=== PATIENT | female | born 1995 | race Caucasian/White ===

== ENCOUNTER 2016-07-19 13:30 | Emergency (ER) | payer BC ==
[2016-07-19 14:21] VITALS: BP 115/73
--- NOTE | 2016-07-19 15:14 | UC ---
Back Pain HPI - HPI Summary HPI Summary: 21 yo female with mild L>R lbp x week no injury increases with movement no UTI symptoms no vag d/c or itch no f/c no n/v/d - History of Current Complaint Chief Complaint: UCGU Stated Complaint: LOW BACK PAIN Time Seen by Provider: 07/19/16 14:57 Hx Obtained From: Patient Hx Last Menstrual Period: 06/19/16 Onset/Duration: Gradual Onset, Lasting Days Timing: Constant Severity Initially: Mild Severity Currently: Mild Pain Intensity: 3 Pain Scale Used: 0-10 Numeric Back Pain: Is Diffuse Character: Aching Aggravating: Movement Alleviating: Rest Associated Signs And Symptoms: Positive: Negative - Allergies/Home Medications Allergies/Adverse Reactions: Allergies Allergy/AdvReac Type Severity Reaction Status Date / Time No Known Allergies Allergy Verified 07/19/16 14:15 Home Medications: Home Medications Norgestimate-Ethinyl Estradiol [Sprintec 28 0.25-35 mg-Mcg] 1 tab PO DAILY 07/19 [History Confirmed 07/19/16] PMH/Surg Hx/FS Hx/Imm Hx Previously Healthy: Yes - Surgical History Surgical History: None - Family History Known Family History: Positive: Hypertension Negative: Cardiac Disease, Diabetes - Social History Alcohol Use: Occasionally Substance Use Type: None Smoking Status (MU): Never Smoked Tobacco Review of Systems Constitutional: Negative Skin: Negative Eyes: Negative ENT: Negative Respiratory: Negative Cardiovascular: Negative Gastrointestinal: Negative Genitourinary: Negative Motor: Negative Neurovascular: Negative Musculoskeletal: Myalgia Neurological: Negative Psychological: Negative All Other Systems Reviewed And Are Negative: Yes Physical Exam Triage Information Reviewed: Yes Appearance: Well-Appearing, No Pain Distress, Well-Nourished Vital Signs: Initial Vital Signs Temp 98.3 F 07/19/16 14:15 Pulse 63 07/19/16 14:15 Resp 18 07/19/16 14:15 BP 115/73 07/19/16 14:15 Pulse Ox 100 07/19/16 14:15 Vital Signs Reviewed: Yes Eyes: Positive: Conjunctiva Clear ENT: Positive: Hearing grossly normal. Negative: Nasal congestion, Nasal drainage, Trismus, Muffled/hoarse voice Neck: Positive: Supple, Nontender Respiratory Exam: Normal Respiratory: Positive: Lungs clear, Normal breath sounds, No respiratory distress Cardiovascular: Positive: RRR, No Murmur. Negative: Tachycardia, Bradycardia Abdomen Description: Positive: Nontender, No Organomegaly, Soft. Negative: CVA Tenderness (R), CVA Tenderness (L) Musculoskeletal: Positive: Strength Intact, ROM Intact, No Edema, Other: - back non tender/normal ROM/(-) SLR Neurological Exam: Normal Neurological: Positive: Alert Psychological Exam: Normal Skin Exam: Normal Skin: Positive: rashes Back Pain Course/Dx - Differential Dx/Diagnosis Provider Diagnoses: Back pain. ?UTI vs muscular Discharge - Discharge Plan Condition: Stable Disposition: HOME Prescriptions: Cephalexin CAP* [Keflex CAP*] 500 mg PO BID #14 cap Patient Education Materials: Back Pain (ED) Referrals: No Primary Care Phys,NOPCP [Primary Care Provider] - Additional Instructions: A urine culture is pending we will start an antibiotic in case you have a UTI as the cause of your pain you can take advil or aleve for your pain recheck in 4-7 days if not better
== END 2016-07-19 15:19 | disposition home or self-care (01) ==
LOC: UCCORT 13:30
DX: M54.5 Low back pain (principal)
CPT/HCPCS: 81025; 87086; 99202; G0463